=== PATIENT | female | born 1990 ===

== ENCOUNTER → 2018-08-07 | Outpatient (CLI) | payer SELFPAY ==
[~2018-08-07] MED LIST: PREN-127 PO
[2018-08-07 09:41] LABS: PLATELET COUNT, AUTOMATED 232 K/uL (150-450)
== END ==
LOC: LAB 08:38
PROVIDERS: ATTEND Obstetrics & Gynecology
DX: Z34.91 Encounter for supervision of normal pregnancy, unspecified, first trimester (principal)
CPT/HCPCS: 36415; 81001; 85025; 86592; 86703; 86762; 86850; 86900; 86901; 87088; 87340